=== PATIENT | female | born 1990 | race Hispanic/Latino ===

== ENCOUNTER 2019-05-01 23:35 | Emergency (ER) | payer BC ==
[2019-05-02 00:24] LABS: Absolute Lymphocytes (CBC) 2.3 K/uL (0.7-4.9); Absolute Monocytes 0.6 K/uL (0.1-1.3); Absolute Neutrophil 5.1 K/uL (1.8-8.0); Basophils % 0.4 % (0-1.3); Eosinophils % 2.8 % (0-4.4); Hematocrit 30.2 % (36.0-45.0); Lymphocytes % 28.2 % (15.3-44.8); MPV 9.5 fL (7.6-11.3); Monocytes % 6.7 % (3.3-12.3); RBC Red Blood Cell Count 3.71 M/uL (3.86-4.86)
[2019-05-02 00:25] LABS: Protime INR 0.99
[2019-05-02 00:37] LABS: BUN Blood Urea Nitrogen 7 mg/dL (7-18); Bicarbonate 22 mmol/L (21-32); Glucose Level 77 mg/dL (74-106); Potassium 3.4 mmol/L (3.5-5.1); Sodium Level 138 mmol/L (136-145)
--- NOTE | 2019-05-02 01:34 | ER ---
Nurse's Notes [facility] Name: Estefany Whitman Age: 28 yrs Sex: Female : 1990 Arrival Date: 05/01/2019 Time: 23:36 Bed 28 Private MD: Rohan Raymond H Diagnosis: Cerebral infarction Presentation: 05/01 23:46 Presenting complaint: Patient states: Headache that began an hour ago, symptoms of lp1 numbness to right hand, tongue, blurred vision; Symptoms have resolved at this time; Headache continued; Patient states concern due to being 30 weeks . Transition of care: patient was not received from another setting of care. Onset of symptoms was May 01, 2019 at 22:30. Risk Assessment: Do you want to hurt yourself or someone else? Patient reports no desire to harm self or others. Initial Sepsis Screen: Does the patient meet any 2 criteria? No. Patient's initial sepsis screen is negative. Does the patient have a suspected source of infection? No. Patient's initial sepsis screen is negative. Care prior to arrival: None. 23:46 Method Of Arrival: Ambulatory lp1 23:46 Acuity: IRMA 3 lp1 Triage Assessment: 23:57 Headache History: Denies prior headaches. General: Appears in no apparent distress. rv comfortable, Behavior is calm, cooperative. Pain: Complains of pain in head Pain currently is 6 out of 10 on a pain scale. Pain began gradually, Also complains of no other associated symptoms. 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 - Social history:: Smoking status: Patient/guardian denies using tobacco. - Ebola Screening: : No symptoms or risks identified at this time. Screenin:49 Abuse screen: Denies threats or abuse. Denies injuries from another. Nutritional lp1 screening: No deficits noted. Tuberculosis screening: No symptoms or risk factors identified. Fall Risk None identified. Assessment: 23:50 General: Appears in no apparent distress. comfortable, Behavior is calm, cooperative. rv Pain: Complains of pain in head. Neuro: Level of Consciousness is awake, alert, obeys commands, Oriented to person, place, time, situation, Reports headache. Cardiovascular: Patient's skin is warm and dry. Respiratory: Airway is patent. GI: No signs and/or symptoms were reported involving the gastrointestinal system. : No signs and/or symptoms were reported regarding the genitourinary system. EENT: No signs and/or symptoms were reported regarding the EENT system. Derm: Skin is intact. Musculoskeletal: No signs and/or symptoms reported regarding the musculoskeletal system. 05/02 02:08 Reassessment: Patient appears in no apparent distress at this time. Patient and/or rv family updated on plan of care and expected duration. Pain level reassessed. Patient is alert, oriented x 3, equal unlabored respirations, skin warm/dry/pink. Dr Judd talked to the patient and family, explained the status, results of diagnostics, and plan of care. patient understood and agreed. report called to Glenis Ybarra RN of [facility]. awaiting EMS transport at the moment. Vital Signs: 05/01 23:48 BP 126 / 89; Pulse 92; Resp 18; Temp 98.3(O); Pulse Ox 100% on R/A; Weight 47.17 kg; lp1 Height 4 ft. 8 in. (142.24 cm); Pain 6/10; 05/02 00:00 BP 115 / 77; Pulse 82; Resp 15; Pulse Ox 100% ; rv 00:30 BP 108 / 73; Pulse 73; Resp 16; Pulse Ox 100% ; rv 01:00 BP 104 / 72; Pulse 71; Resp 15; Temp 98.2; Pulse Ox 100% ; rv 02:00 BP 100 / 61; Pulse 75; Resp 14; Pulse Ox 100% ; rv 03:02 BP 100 / 76; Pulse 74; Resp 15; Temp 98; Pulse Ox 100% ; rv 05/01 23:48 Body Mass Index 23.32 (47.17 kg, 142.24 cm) lp1 Vitals: 01:27 Heart Tones 140s RLQ. rv [place] Coma Score: 01:26 Eye Response: spontaneous(4). Verbal Response: oriented(5). Motor Response: obeys commands(6). Total: 15. NIH Stroke Scale Scores: NIHSS Score: 1 ED Course: 05/01 23:36 Patient arrived in ED. am2 23:36 Rohan Raymond DO is Private Physician. am2 23:44 Som Mcarthur, DANGELO is Primary Nurse. rv 23:48 Triage completed. lp1 23:48 Arm band placed on left wrist. lp1 23:55 Murtaza Judd MD is Attending Physician. gs 23:57 Patient has correct armband on for positive identification. Bed in low position. Call rv light in reach. Side rails up X 1. Adult w/ patient. Pulse ox on. NIBP on. 05/02 00:14 Inserted saline lock: 20 gauge in left antecubital area, using aseptic technique. Blood rv collected. 00:20 X-ray completed. Portable x-ray completed in exam room. Patient tolerated procedure kw well. 00:[address] via stretcher. eh 00:27 Stroke CXR 1 View In Process Unspecified. EDMS 00:28 CT completed. Patient tolerated procedure well. eh 00:31 CT Stroke Brain w/o Contrast In Process Unspecified. EDMS 00:35 Note: returned after images were sent to Jose/Mirladne and called to expedite eh report. Patient moved back from CT. 02:08 No provider procedures requiring assistance completed. Patient transferred, IV remains rv in place. Administered Medications: No medications were administered Outcome: 01:33 ER care complete, transfer ordered by . 02:08 Transferred by ground EMS to [facility], Transfer form completed. X-rays sent rv w/ patient. 02:08 Condition: stable 02:08 Instructed on the need for transfer. 03:02 Patient left the ED. rv NIH Stroke Scale - NIH Stroke Score Date: 05/02/2019 Time: Total Score = 1 1a. Level of Consciousness (LOC) - 0(Alert) 1b. Level of Consciousness (LOC) (Year \T\ Age) - 0(Both) 1c. LOC Commands (Open \T\ Closes Eyes/Yardage Control Operator) - 0(Both) 2. Best Gaze (Lateral Gaze Paresis) - 0(Normal) 3. Visual Field Loss - 0(No visual loss) 4. Facial Palsy - 0(Normal) 5a. Left Arm: Motor (10-second hold) - 0(No drift) 5b. Right Arm: Motor (10-second hold) - 0(No drift) 6a. Left Leg: Motor (5-second hold - always test supine) - 0(No drift) 6b. Right Leg: Motor (5-second hold - always test supine) - 0(No drift) 7. Limb Ataxia (finger/nose \T\ heel/alejandro - test with eyes open) - 0(Absent) 8. Sensory Loss (pinprick arms/legs/face) - 0(Normal) 9. Best Language: Aphasia (description/naming/reading) - 0(No aphasia) 10. Dysarthria (speech clarity - read or repeat words) - 1(Mild to Moderate) 11. Extinction and Inattention (visual/tactile/auditory/spatial/personal) - 0(No abnormality) Initials: Signatures: Dispatcher [employer] EDSC Joe Iyer Tonya Heart Laura, RN RN lp1 Yesica Mejia am2 Murtaza Judd MD MD gs Vicente, Ronaldo, RN RN rv Corrections: (The following items were deleted from the chart) 05/01 23:59 23:57 Pain: Complains of pain in head Pain currently is 8 out of 10 on a pain rv scale. Pain began gradually, Also complains of no other associated symptoms. rv 05/02 00:53 00:53 CT completed. Patient tolerated procedure well [facility]
--- NOTE | 2019-05-02 01:35 | EDPHYS ---
Physician Documentation [facility] Name: Estefany Whitman Age: 28 yrs Sex: Female : 1990 Arrival Date: 05/01/2019 Time: 23:36 Bed 28 Private MD: Rohan Raymond H ED Physician Murtaza Judd HPI: 05/02 01:26 This 28 yrs old Female presents to ER via Ambulatory with complaints of gs Headache, Numbness Of Hand - and tongue. 01:26 The patient complains of pain to the forehead. The patient describes the headache as gs throbbing. Onset: The symptoms/episode began/occurred acutely. Associated signs and symptoms: Pertinent positives: paresthesias, blurred vision, speech difficulty. Severity of symptoms: At its worst the pain was severe, in the emergency department the pain has resolved. says numbness to r face,tongue, r upper extremity resolved says has trouble forming words. 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 - Social history:: Smoking status: Patient/guardian denies using tobacco. - Ebola Screening: : No symptoms or risks identified at this time. ROS: 05/02 01:26 All other systems are negative. gs Exam: 01:26 Head/Face: Normocephalic, atraumatic. Eyes: Pupils equal round and reactive to light, gs extra-ocular motions intact. Lids and lashes normal. Conjunctiva and sclera are non-icteric and not injected. Cornea within normal limits. Periorbital areas with no swelling, redness, or edema. ENT: Nares patent. No nasal discharge, no septal abnormalities noted. Tympanic membranes are normal and external auditory canals are clear. Oropharynx with no redness, swelling, or masses, exudates, or evidence of obstruction, uvula midline. Mucous membranes moist. Neck: Trachea midline, no thyromegaly or masses palpated, and no cervical lymphadenopathy. Supple, full range of motion without nuchal rigidity, or vertebral point tenderness. No Meningismus. Chest/axilla: Normal chest wall appearance and motion. Nontender with no deformity. No lesions are appreciated. Cardiovascular: Regular rate and rhythm with a normal S1 and S2. No gallops, murmurs, or rubs. Normal PMI, no JVD. No pulse deficits. Respiratory: Lungs have equal breath sounds bilaterally, clear to auscultation and percussion. No rales, rhonchi or wheezes noted. No increased work of breathing, no retractions or nasal flaring. 01:26 Back: No spinal tenderness. No costovertebral tenderness. Full range of motion. Skin: Warm, dry with normal turgor. Normal color with no rashes, no lesions, and no evidence of cellulitis. MS/ Extremity: Pulses equal, no cyanosis. Neurovascular intact. Full, normal range of motion. 01:26 Constitutional: The patient appears alert, awake. 01:26 Abdomen/GI: Inspection: gravid appearance, is noted, Palpation: abdomen is soft and non-tender, in all quadrants, no contractions no bleeding. 01:26 Neuro: Orientation: is normal, Mentation: is normal, Cranial nerves: CN II- XII are normal as tested, Cerebellar function: is grossly normal, Motor: moves all fours, strength is normal, Sensation: no obvious gross deficits. Vital Signs: 05/01 23:48 BP 126 / 89; Pulse 92; Resp 18; Temp 98.3(O); Pulse Ox 100% on R/A; Weight 47.17 kg; lp1 Height 4 ft. 8 in. (142.24 cm); Pain 6/10; 0605 00:00 BP 115 / 77; Pulse 82; Resp 15; Pulse Ox 100% ; rv 00:30 BP 108 / 73; Pulse 73; Resp 16; Pulse Ox 100% ; rv 01:00 BP 104 / 72; Pulse 71; Resp 15; Temp 98.2; Pulse Ox 100% ; rv 02:00 BP 100 / 61; Pulse 75; Resp 14; Pulse Ox 100% ; rv 03:02 BP 100 / 76; Pulse 74; Resp 15; Temp 98; Pulse Ox 100% ; rv 05/01 23:48 Body Mass Index 23.32 (47.17 kg, 142.24 cm) lp1 NIH Stroke Scale Scores: 01:26 NIHSS Score: 1 gs [place] Coma Score: 01:26 Eye Response: spontaneous(4). Verbal Response: oriented(5). Motor Response: obeys gs commands(6). Total: 15. MDM: 00:05 Patient medically screened. 01:26 Differential diagnosis: cerebral vascular accident, subarachnoid bleed, vasomotor gs headache. Data reviewed: vital signs, nurses notes, lab test result(s), EKG, radiologic studies. Counseling: I had a detailed discussion with the patient and/or guardian regarding: the historical points, exam findings, and any diagnostic results supporting the discharge/admit diagnosis, the need for outpatient follow up. ED course: no tpa pt is 30 weeks, will not select based on this relative contraindication, mfm says no tpa also. 05/02 00:07 Order name: Basic Metabolic Panel; Complete Time: 01:20 05/02 00:07 Order name: CBC with Diff; Complete Time: 01:20 05/02 00:07 Order name: Protime (+inr); Complete Time: 01:20 05/02 00:07 Order name: CT Stroke Brain w/o Contrast 05/02 00:07 Order name: Stroke CXR 1 View 05/02 00:28 Order name: Glucose, Ancillary Testing; Complete Time: 01:20 EDWY 06 00:07 Order name: EKG; Complete Time: 00:10 05/02 00:07 Order name: Accucheck; Complete Time: 00:28 05/02 00:07 Order name: Cardiac monitoring; Complete Time: 00:28 05/02 00:07 Order name: EKG - Nurse/Tech; Complete Time: 00:48 05/02 00:07 Order name: IV Saline Lock; Complete Time: 00:28 05/02 00:07 Order name: Labs collected and sent; Complete Time: 00:29 05/02 00:07 Order name: NPO; Complete Time: 00:29 05/02 00:07 Order name: O2 Per Protocol; Complete Time: 00:29 05/02 00:07 Order name: O2 Sat Monitoring; Complete Time: 00:29 05/02 00:07 Order name: Stroke Swallow Screen; Complete Time: 00:29 gs 05/02 01:19 Order name: Heart Tones; Complete Time: :27 gs Administered Medications: No medications were administered Disposition: 05/02/19 01:33 [facility]. Diagnosis is Cerebral infarction. - Reason for transfer: Higher level of care. - Accepting physician is macey. - Condition is Stable. - Problem is new. - Symptoms have improved. Critical care time excluding procedures: Critical care time: Bedside Care: 10 minutes, Consultation: 10 minutes, Family gs Intervention: 10 minutes. Total time: 30 minutes NIH Stroke Scale - NIH Stroke Score Date: 05/02/2019 Time: Total Score = 1 1a. Level of Consciousness (LOC) - 0(Alert) 1b. Level of Consciousness (LOC) (Year \T\ Age) - 0(Both) 1c. LOC Commands (Open \T\ Closes Eyes/Supervisor Sign Shop) - 0(Both) 2. Best Gaze (Lateral Gaze Paresis) - 0(Normal) 3. Visual Field Loss - 0(No visual loss) 4. Facial Palsy - 0(Normal) 5a. Left Arm: Motor (10-second hold) - 0(No drift) 5b. Right Arm: Motor (10-second hold) - 0(No drift) 6a. Left Leg: Motor (5-second hold - always test supine) - 0(No drift) 6b. Right Leg: Motor (5-second hold - always test supine) - 0(No drift) 7. Limb Ataxia (finger/nose \T\ heel/alejandro - test with eyes open) - 0(Absent) 8. Sensory Loss (pinprick arms/legs/face) - 0(Normal) 9. Best Language: Aphasia (description/naming/reading) - 0(No aphasia) 10. Dysarthria (speech clarity - read or repeat words) - 1(Mild to Moderate) 11. Extinction and Inattention (visual/tactile/auditory/spatial/personal) - 0(No abnormality) Initials: Signatures: Dispatcher [employer] EDMaru Garcia RN RN lp1 Murtaza Judd MD MD gs Vicente, Ronaldo, RN RN rv Corrections: (The following items were deleted from the chart) 03:02 01:33 05/02/2019 01:33 Transfer ordered to [facility]. Diagnosis is Cerebral infarction. Reason for transfer: Higher level of care. Accepting physician is macey. Condition is Stable. Problem is new. Symptoms have improved. gs
--- NOTE | 2019-05-02 07:41 | EKG ---
Test Date: 2019-05-02 Test Time: 00:38:39 Watch Repairer: LARS MEASUREMENT RESULTS: Intervals: Rate: 74 MS: 144 QRSD: 64 QT: 380 QTc: 421 [place]: P: 58 MS: 144 QRS: 69 T: 48 INTERPRETIVE STATEMENTS: Sinus rhythm with marked sinus arrhythmia Otherwise normal ECG Compared to ECG 07/08/2000 08:27:00 Sinus bradycardia no longer present Electronically Signed On 05-02-19 07:40:42 CDT by Carlos Nix
--- NOTE | 2019-05-02 08:13 | RAD REPORT ---
EXAM DESCRIPTION: RAD - Chest Single View - 05/02/2019 12:25 am CLINICAL HISTORY: MALAISE Chest pain. COMPARISON: No comparisons FINDINGS: Portable technique limits examination quality. The lungs are grossly clear. The heart is normal in size. No displaced fractures. IMPRESSION: No acute intrathoracic process suspected.
--- NOTE | 2019-05-02 09:40 | RAD REPORT ---
EXAM DESCRIPTION: Ct Stroke Brain Wo Cont CLINICAL HISTORY: SLURRED SPEECH COMPARISON: None. TECHNIQUE: CT HEAD WITHOUT IV CONTRAST on 05/02/2019 12:07 AM CDT This exam was performed according to our departmental dose-optimization program, which includes autom ated exposure control, adjustment of the mA and/or kV according to patient size and/or use of iterati ve reconstruction technique. FINDINGS: There is no acute hemorrhage, mass effect or midline shift. Aguilera-white differentiation is preserved. There is no hydrocephalus. There is no significant volume loss for age. The calvarium is intact. Orbits and globes are unremarkable. The paranasal sinuses are clear. Mastoid air cells are clear. IMPRESSION: No acute intracranial findings. Electronically signed by: Ernie Elder MD 05/02/2019 12:37 AM CDT Due to temporary technical issues with the PACS/Fluency reporting system, reports are being signed by the in house radiologist as a courtesy to ensure prompt reporting. The interpreting radiologist is f ully responsible for the content of the report.
== END 2019-05-02 03:02 | disposition short-term general hospital (02) ==
LOC: ER 23:35
DX: I63.9 Cerebral infarction, unspecified (principal); R29.701 NIHSS score 1; Z3A.32 32 weeks gestation of pregnancy
CPT/HCPCS: 36415; 70450; 71045; 80048; 82962; 85025; 85610; 93005; 99285

== ENCOUNTER 2019-06-27 17:44 | Inpatient (IN) | payer BC ==
[2019-06-27] MEDS ORDERED: OXYTOCIN/LR 20 UNIT/1,000 ML BAG IV ONE (18:01)
[2019-06-27] MEDS ORDERED: Ringers Lactate 1,000 ML IV ONE (18:02)
[2019-06-27] MEDS ORDERED: LIDOCAINE 1% MPF 30 ML VIAL ONE (18:08)
[2019-06-27] MEDS ORDERED: Oxycodone HCl/Acetaminophen 1 TAB TAB PO PRN (18:32)
[2019-06-27] MEDS ORDERED: ACETAMINOPHEN 500 MG TAB PO PRN (18:32)
[2019-06-27] MEDS ORDERED: IBUPROFEN 200 MG TAB PO PRN (18:32)
[2019-06-27] MEDS ORDERED: OXYTOCIN/LR 20 UNIT/1,000 ML BAG IV SCH (19:00)
[2019-06-27 19:20] LABS: Basophils % 0.3 % (0-1.3); Hematocrit 30.8 % (36.0-45.0); Lymphocytes % 10.4 % (15.3-44.8); MPV 10.2 fL (7.6-11.3); RBC Red Blood Cell Count 4.05 M/uL (3.86-4.86)
[2019-06-27 19:49] LABS: RPR (Rapid Plasma Reagin) NON-REACT (NON-REACT)
[2019-06-27 19:55] LABS: Blood Morphology Comment NOT SEEN (NOT SEEN); Platelet Estimate ADEQ; Urine White Blood Cell Casts OK
[2019-06-28] MEDS ORDERED: MEASLES,MUMPS,RUBELLA VAC 0.5ML SQVAC ONE (08:19)
[2019-06-28] MEDS ORDERED: Tdap (Diph,Pertuss(Acell),Tet Vac) 0.5 ML SYR IMVAC ONE (08:19)
--- NOTE | 2019-06-28 08:26 | PREOPHP ---
Date of Admission: 06/27/2019 A 28-year-old, 2, para 1, 38 weeks' gestation, previous history of preeclampsia with the firs t . Patient is apparently in clinic, was seen today in the clinic, was told nothing was hap pening, went home, was having contractions every 8 minutes and then delivered the baby at home. Came in through EMS with the baby in her arms. Placenta still undelivered. Patient was prepped and drap ed, and the placenta was removed easily. Adherent membranes were removed with ring clamp. Estimated blood loss 200 cc or thereabouts. She had a small first-degree laceration involving the left labia minora, which was sutured with 3-0 chromic 3 stitches after local infiltration. Patient's blood type and all other labs are pending. She did not know her beta strep status, although she knew that the strep swab was taken and of course, the baby has been delivered. Patient has tolerated all procedure s well. She did not require any medicines given. Doing well at this time, quite stable. All vital signs normal. Diagnoses: Term intrauterine at 38 weeks, precipitous delivery at home, delivery of the pl acenta here in the hospital, and 3 stitches on the left labia minora placed. CLAUDETTE/SOLEDAD Voice ID: [id number]
--- NOTE | 2019-06-29 05:52 | DS ---
Date of Discharge: 06/28/2019 Hospital Course: This is a 28-year-old 2, para 1, 37 to 38 weeks, followed antepartum with _ Clinic. Rh positive. Immune to Rubella. Negative beta strep screen. All labs g ood. She had equivocal immunity to rubella. This has been discussed and she is aware of that and wa nts the rubella immunization. She also wants a Tdap immunization. Delivered outside hospital, came in, placenta was delivered without difficulty. She had a first-degree laceration, which was repaired under local anesthetic with 3-0 chromic. Blood loss was minimal, 200-250 cc. has done w ell. She is afebrile, ambulating, voiding. She is ready to be dismissed; however, the baby will be kept until tomorrow because of delivery outside the hospital, but the baby doing quite well and in fa ct is being circumcised this morning. Full dismissal instructions given. She is going to call her _ Clinic. They will give her a 6 weeks checkup, but she knows that during 6 weeks , if she has a fever of 100 degrees or more severe pain, heavy bleeding, or any other type of abnorma lities, she should contact them sooner. She does not require any analgesics on dismissal. Final Diagnoses: Precipitous delivery outside the hospital, delivery of the placenta, repair of firs t-degree laceration. Tdap and rubella immunizations ordered. CLAUDETTE/SOLEDAD Voice ID: [id number] Report ID: [id number]
== END 2019-06-28 09:00 | disposition home or self-care (01) | DRG 776 ==
LOC: 2ND-WC 17:44
PROVIDERS: ADMIT Specialist; ATTEND Specialist
PROC: 0HQ9XZZ Repair Perineum Skin, External Approach (ICD-10-PCS; principal; 2019-06-27)
PROC: 10E0XZZ Delivery of Products of Conception, External Approach (ICD-10-PCS; 2019-06-27)
DX: O70.0 First degree perineal laceration during delivery (principal); Z3A.38 38 weeks gestation of pregnancy
CPT/HCPCS: 36415; 85014; 85018; 85025; 86592; 87340; 88307; 90471; 90707; 90715; J2590